=== PATIENT | male | born 1995 | race Two or more races ===

== ENCOUNTER 2021-05-15 15:51 | Emergency (ER) | payer OTHER ==
[~2021-05-15] VITALS: Ht 165.1 cm; Wt 63.5 kg
--- NOTE | 2021-05-15 16:00 | NUR ---
DR PRESSLEY AT BEDSIDE
[2021-05-15 17:08] VITALS: BP 128/67
--- NOTE | 2021-05-15 17:38 | NUR ---
Patient does not wish to proceed with medical care recommended by Dr. PRESSLEY. Patient given information related to possible complications, up to and including , which could occur as a result of leaving the hospital at this time. Patient verbalizes understanding of risks involved due to leaving against medical advice. Patient has signed AMA form.
== END 2021-05-15 18:40 | disposition left against medical advice (07) ==
LOC: ER 15:57
DX: Z02.89 Encounter for other administrative examinations (principal)